=== PATIENT | male | born 1935 | race Caucasian/White ===

== ENCOUNTER 2019-08-25 | Emergency (ER) | payer MEDICARE ==
[~2019-08-25] MED LIST: ALENDRONATE70 MG PO; ALEVE220 M1 OR; ALTACE2.5 M1 PO; ASPIRIN325 MG PO; BABY ASPIRIN81 MG OR; CENTRUM OR; FISH OIL1000 M2; FOLIC ACID800 MCG OR; FOLIC ACID800 MCG PO; HYDROCODONE/ACE1 TAB PO; LORTAB 5-325 MG1 TAB PO; NITROSTAT0.3 MG SL; OMEGA 31000 MG OR; OSTEO BI-FLE OR; PLAVIX75 MG PO; SAW PALMETTO450 MG OR; TRAMADOL HCL50 MG OR
[2019-08-25] MEDS ORDERED: AMOXICILLIN500 MG PO (20:19)
[2019-08-25] MEDS ORDERED: HYDROCO/APAP1 TA9 PO (20:55)
[2019-08-25] MEDS ORDERED: SIMVASTATIN40 MG PO (20:56)
[2019-08-25] MEDS ORDERED: CLOPIDOGREL75 MG PO (20:56)
[2019-08-25] MEDS ORDERED: RAMIPRIL2.5 MG PO (20:56)
[2019-08-25] MEDS ORDERED: PANTOPRAZOLE SO40 M1 PO (20:56)
== END 2019-08-25 20:50 | disposition home or self-care (01) ==
PROC: 0HQLXZZ Repair Left Lower Leg Skin, External Approach (ICD-10-PCS; principal; 2019-08-25)
DX: S81.812A Laceration without foreign body, left lower leg, initial encounter (principal); W26.8XXA Contact with other sharp object(s), not elsewhere classified, initial encounter; Y92.69 Other specified industrial and construction area as the place of occurrence of the external cause